=== PATIENT | female | born 1950 | race Caucasian/White ===

== ENCOUNTER 2024-07-06 12:08 | Inpatient (IN) | payer MEDICARE, OTHER ==
[~2024-07-06] VITALS: Ht 157.5 cm; Wt 57.6 kg
[2024-07-06] MEDS ORDERED: EMPA10TA PO (12:21)
[2024-07-06] MEDS ORDERED: METF-440 PO (12:21)
[2024-07-06 13:14] LABS: BASOPHILS % (AUTO) 0.4 % (0.0-2.0); EOSINOPHILS # (AUTO) 0.1 K/uL (0.0-0.7); EOSINOPHILS % (AUTO) 1.2 % (0.0-7.0); HEMATOCRIT 42.8 % (31.2-41.9); HEMOGLOBIN 14.1 g/dL (10.9-14.3); LYMPHOCYTES # (AUTO) 5.1 K/uL (0.8-4.8); LYMPHOCYTES % (AUTO) 48.4 % (20.5-51.5); MEAN CORPUSCULAR HEMOGLOBIN 30.2 uug (24.7-32.8); MEAN CORPUSCULAR HGB CONC 33 g/dL (32.3-35.6); MEAN CORPUSCULAR VOLUME 91.7 fL (75.5-95.3); MONOCYTES # (AUTO) 0.5 K/uL (0.1-1.30); MONOCYTES % (AUTO) 4.4 % (0.0-11.0); NEUTROPHILS # (AUTO) 4.8 K/uL (1.8-8.9); NEUTROPHILS % (AUTO) 45.6 % (38.5-71.5); PLATELET COUNT (AUTO) 241 K/uL (179-408); RED BLOOD CELL COUNT(AUTO) 4.67 MIL/uL (3.63-4.92); WHITE BLOOD COUNT (AUTO) 10.5 K/uL (3.8-11.8)
[2024-07-06 13:19] LABS: DIFFERENTIAL COMMENT 1
[2024-07-06 13:23] LABS: CALCIUM 9.1 mg/dL (8.5-10.1); CARBON DIOXIDE 28 mmol/L (21-32); CHLORIDE 106 mmol/L (98-107); CREATININE 0.9 mg/dL (0.6-1.3); GLUCOSE 144 mg/dL (74-106); POTASSIUM 4.1 mmol/L (3.5-5.1); SODIUM SERUM 142 mmol/L (136-145); UREA NITROGEN, BLOOD 29 mg/dL (7-18)
[2024-07-06] MEDS ORDERED: ONDANSETRON 4 MG/2 ML VIAL ONE (13:39)
[2024-07-06] MEDS: ONDANSETRON 4 MG/2 ML VIAL IV ONE (13:40)
[2024-07-06] MEDS ORDERED: MORPHINE SULFATE 4 MG/1 ML DISP.SYRIN ONE (13:40)
[2024-07-06] MEDS: MORPHINE SULFATE 2 MG/1 ML DISP.SYRIN IV ONE ×2 (13:42→16:45)
[2024-07-06] MEDS ORDERED: MORPHINE SULFATE 2 MG/1 ML DISP.SYRIN ONE (16:44)
[2024-07-06] MEDS ORDERED: DORZ1DRO7 EACHEYE (19:28)
[2024-07-06] MEDS ORDERED: ONDANSETRON 4 MG/2 ML VIAL IV PRN (21:00)
[2024-07-06] MEDS ORDERED: ACETAMINOPHEN 325 MG TABLET PO PRN (21:00)
[2024-07-06] MEDS ORDERED: REMEDY ESSENTIAL ZINC PASTE 113 GM TP PRN (21:00)
[2024-07-06] MEDS ORDERED: MAGNESIUM HYDROXIDE 30 ML LIQUID UDC PO PRN (21:00)
[2024-07-06 21:30] VITALS: BP 128/50; TEMP 98.3; O2SAT 96
[2024-07-06] MEDS: IV NS 1000 ML 1,000 ML IV PRN (21:53)
[2024-07-06] MEDS: MORPHINE SULFATE 2 MG/1 ML DISP.SYRIN IV PRN (22:38)
[2024-07-07 06:00] VITALS: BP 141/60; TEMP 98.2; O2SAT 96
[2024-07-07] MEDS: GABAPENTIN 100 MG CAPSULE PO ONE (06:45)
[2024-07-07] MEDS: ACETAMINOPHEN 325 MG TABLET PO ONE (06:46)
[2024-07-07] MEDS: PANTOPRAZOLE SODIUM 40 MG TABLET.DR PO SCH (06:46)
[2024-07-07 07:13] LABS: BASOPHILS % (AUTO) 0.4 % (0.0-2.0); EOSINOPHILS # (AUTO) 0.1 K/uL (0.0-0.7); EOSINOPHILS % (AUTO) 1.2 % (0.0-7.0); HEMATOCRIT 40.6 % (31.2-41.9); HEMOGLOBIN 13.5 g/dL (10.9-14.3); LYMPHOCYTES % (AUTO) 37.5 % (20.5-51.5); MEAN CORPUSCULAR HEMOGLOBIN 30.4 uug (24.7-32.8); MEAN CORPUSCULAR HGB CONC 33 g/dL (32.3-35.6); MEAN CORPUSCULAR VOLUME 91.4 fL (75.5-95.3); MONOCYTES # (AUTO) 0.8 K/uL (0.1-1.30); MONOCYTES % (AUTO) 7.1 % (0.0-11.0); NEUTROPHILS # (AUTO) 5.8 K/uL (1.8-8.9); NEUTROPHILS % (AUTO) 53.8 % (38.5-71.5); PLATELET COUNT (AUTO) 221 K/uL (179-408); RED BLOOD CELL COUNT(AUTO) 4.45 MIL/uL (3.63-4.92); RED CELL DISTRIBUTION WIDTH 12.8 % (12.3-17.7); WHITE BLOOD COUNT (AUTO) 10.7 K/uL (3.8-11.8)
[2024-07-07 07:23] LABS: CALCIUM 8.6 mg/dL (8.5-10.1); CARBON DIOXIDE 27 mmol/L (21-32); CHLORIDE 104 mmol/L (98-107); CREATININE 0.9 mg/dL (0.6-1.3); GLUCOSE 160 mg/dL (74-106); MAGNESIUM 2.2 mg/dL (1.8-2.4); PHOSPHOROUS 3.9 mg/dL (2.5-4.9); POTASSIUM 3.9 mmol/L (3.5-5.1); SODIUM SERUM 140 mmol/L (136-145); UREA NITROGEN, BLOOD 23 mg/dL (7-18)
[2024-07-07 07:24] LABS: DIFFERENTIAL COMMENT 1
[2024-07-07] MEDS ORDERED: MIDAZOLAM HCL 2 MG/2 ML VIAL ONE (07:28)
[2024-07-07] MEDS ORDERED: FENTANYL CITRATE 100 MCG/2 ML AMPUL ONE ×2 (07:28→09:34)
[2024-07-07] MEDS ORDERED: KETAMINE HCL 500 MG/5 ML VIAL ONE (07:28)
[2024-07-07] MEDS ORDERED: FAMOTIDINE. 20 MG/2 ML VIAL IV ONE (07:29)
[2024-07-07] MEDS ORDERED: ROCURONIUM BROMIDE 50 MG/5 ML VIAL ONE (07:29)
[2024-07-07] MEDS ORDERED: PROPOFOL 200 MG/20 ML BOTTLE ONE (07:57)
[2024-07-07] MEDS ORDERED: METFORMIN HCL 500 MG TABLET PO SCH ×2 (08:00→09:00)
[2024-07-07] MEDS ORDERED: VANCOMYCIN 1000 MG VIAL ONE (08:01)
[2024-07-07] MEDS ORDERED: HYDROCODONE/APAP 10-325 MG TABLET PO PRN (10:15)
[2024-07-07] MEDS: MORPHINE SULFATE 4 MG/1 ML DISP.SYRIN IV PRN (10:52)
[2024-07-07] MEDS ORDERED: METF-494 PO (11:54)
[2024-07-07 12:00] VITALS: O2SAT 98
[2024-07-07 12:01] VITALS: BP 113/53; TEMP 97.7; O2SAT 98
[2024-07-07] MEDS: IV D5W-0.45% NS +20 KCL 1,000 ML IV PRN (12:13)
[2024-07-07] MEDS: METFORMIN XR 500 MG TAB.SR.24H PO SCH (12:22)
[2024-07-07 15:50] VITALS: BP 109/49; TEMP 97.7; O2SAT 97
[2024-07-07] MEDS: CEFAZOLIN 1 G in IV DEXTROSE 5% 50 ML IV SCH (17:56)
[2024-07-07] MEDS: TRAMADOL HCL 50 MG TABLET PO PRN (18:52)
[2024-07-07 19:58] VITALS: BP 132/61; TEMP 98.1; O2SAT 98
[2024-07-08 04:40] VITALS: BP 121/49; TEMP 97.5; O2SAT 95
[2024-07-08 10:53] VITALS: BP 126/52; TEMP 98.4; O2SAT 95
[2024-07-08] MEDS ORDERED: HYDR-3980 PO (11:32)
[2024-07-08] MEDS ORDERED: PANT40TA49 PO (11:32)
[2024-07-08] MEDS ORDERED: TRAM50TA2 PO (11:32)
[2024-07-08] MEDS: IBUPROFEN 600 MG TABLET PO PRN (14:08)
[2024-07-08] MEDS ORDERED: METF-886 PO (16:57)
== END 2024-07-08 14:35 | DRG 522 ==
LOC: ER 12:08 → MEDSURG3 20:45
PROVIDERS: ADMIT Nurse Practitioner Acute Care; ATTEND Nurse Practitioner Acute Care
PROC: 0SRR01A Replacement of Right Hip Joint, Femoral Surface with Metal Synthetic Substitute, Uncemented, Open Approach (ICD-10-PCS; principal; 2024-07-07)
DX: S72.011A Unspecified intracapsular fracture of right femur, initial encounter for closed fracture (principal); D68.69 Other thrombophilia; V03.00XA Pedestrian on foot injured in collision with car, pick-up truck or van in nontraffic accident, initial encounter; Y92.481 Parking lot as the place of occurrence of the external cause; E11.65 Type 2 diabetes mellitus with hyperglycemia; E86.0 Dehydration; R79.89 Other specified abnormal findings of blood chemistry; Z98.890 Other specified postprocedural states; Z74.09 Other reduced mobility; Z79.84 Long term (current) use of oral hypoglycemic drugs
CPT/HCPCS: 36415; 71045; 72170; 73501; 73560; 83735; 84100; 85025; 85730; 93005; A4606; A4649; A4663; C1776; G0378; J0690; J1100; J2250; J2270; J2405; J3010; J3370; J3490; J7040

== ENCOUNTER 2024-07-08 15:19 | Inpatient (IN) | payer MEDICARE, OTHER ==
[~2024-07-08] VITALS: Ht 157.5 cm; Wt 57.6 kg
[~2024-07-08 15:19] MED LIST: DORZ1DRO7 EACHEYE; EMPA10TA PO; HYDR-3980 PO; METF-494 PO; PANT40TA49 PO; TRAM50TA2 PO
[2024-07-08 16:00] VITALS: BP 120/49; TEMP 97.8; O2SAT 95
[2024-07-08] MEDS ORDERED: METF-886 PO (16:57)
[2024-07-08 20:11] VITALS: BP 110/37; TEMP 98.9; O2SAT 95
[2024-07-08] MEDS: TRAMADOL HCL 50 MG TABLET PO PRN (22:10)
[2024-07-09] MEDS: PANTOPRAZOLE SODIUM 40 MG TABLET.DR PO SCH (06:22)
[2024-07-09 07:09] VITALS: BP 124/53; TEMP 98.4; O2SAT 95
[2024-07-09 08:00] VITALS: BP 109/45; TEMP 98.6; O2SAT 96
[2024-07-09] MEDS: METFORMIN XR 500 MG TAB.SR.24H PO SCH (08:16)
[2024-07-09] MEDS: EMPAGLIFLOZIN 10 MG TABLET PO SCH (08:17)
[2024-07-09] MEDS: IBUPROFEN 400 MG TABLET PO PRN (08:23)
[2024-07-09] MEDS: IBUPROFEN 600 MG TABLET PO PRN (12:40)
[2024-07-09 16:00] VITALS: BP 114/75; TEMP 98.7; O2SAT 97
[2024-07-09] MEDS ORDERED: DORZOLAMIDE/TIMOLOL OPHT DROP 10 ML BOTTLE OP SCH (17:00)
[2024-07-09 20:00] VITALS: BP 110/57; TEMP 98.9; O2SAT 95
[2024-07-09] MEDS: DORZOLAMIDE/TIMOLOL OPHT DROP 10 ML BOTTLE OP SCH (21:00)
[2024-07-10 04:00] VITALS: BP 110/52; TEMP 98.2; O2SAT 95
[2024-07-10] MEDS: CEphaleXIN 500 MG CAPSULE PO SCH (14:05)
[2024-07-10 15:00] VITALS: BP 103/50; TEMP 98.2; O2SAT 94
[2024-07-10] MEDS: METFORMIN XR 500 MG TAB.SR.24H PO SCH (17:12)
[2024-07-10 20:00] VITALS: BP 109/50; TEMP 98; O2SAT 97
[2024-07-11 03:41] VITALS: BP_SYST 124; BP_SYST 131; BP_DIAS 58; BP_DIAS 60; TEMP 97.2; TEMP 98.2; O2SAT 61; O2SAT 93
[2024-07-11] MEDS ORDERED: EMPAGLIFLOZIN 10 MG TABLET PO SCH (09:00)
[2024-07-11 15:51] VITALS: BP 124/52; TEMP 97.6; O2SAT 98
[2024-07-11] MEDS: EMPAGLIFLOZIN 10 MG TABLET PO SCH (17:06)
[2024-07-11 20:00] VITALS: BP 118/59; TEMP 98.4; O2SAT 98
[2024-07-12 11:46] VITALS: BP 100/67; TEMP 97.2; O2SAT 97
[2024-07-12 15:56] VITALS: BP 120/78; TEMP 97.4; O2SAT 97
[2024-07-12 23:17] VITALS: BP 120/46; TEMP 97.6; O2SAT 98
[2024-07-13 06:00] VITALS: BP 116/54; TEMP 97.7; O2SAT 97
[2024-07-13 15:50] VITALS: BP 103/61; TEMP 97.7; O2SAT 96
[2024-07-13 20:00] VITALS: BP 120/50; TEMP 97.3; O2SAT 100
[2024-07-14 06:00] VITALS: BP 111/51; TEMP 97.9; O2SAT 97
[2024-07-14 16:28] VITALS: BP 115/40; TEMP 98.6; O2SAT 97
[2024-07-15 07:10] VITALS: BP 111/53; TEMP 97.5; O2SAT 99
== END 2024-07-15 14:45 | disposition home health service (06) | DRG 560 ==
PROVIDERS: ADMIT Physical Medicine & Rehabilitation Pain Medicine; ATTEND Physical Medicine & Rehabilitation Pain Medicine
DX: Z47.1 Aftercare following joint replacement surgery (principal); D68.69 Other thrombophilia; Z96.641 Presence of right artificial hip joint; V03.00XD Pedestrian on foot injured in collision with car, pick-up truck or van in nontraffic accident, subsequent encounter; E86.0 Dehydration; E11.65 Type 2 diabetes mellitus with hyperglycemia; Z79.4 Long term (current) use of insulin; Z96.653 Presence of artificial knee joint, bilateral; R79.89 Other specified abnormal findings of blood chemistry
CPT/HCPCS: 73502; A6209; A6213